=== PATIENT | male | born 1955 | race Caucasian/White ===

== ENCOUNTER 2023-05-31 08:56 | Outpatient (OUT) | payer MEDICARE, SELFPAY ==
--- NOTE | 2023-05-31 | US_ITS ---
The [address] [address] Patient Name: ADELA AGUILAR MRN: [id number] date: 1955 Sex: M Assigned Patient Location: [place] Current Patient Location: [place] Accession/Order Number: [id number] Exam Date: 05/31/2023 09:13 Report Date: 05/31/2023 10:47 At the request of: VLAD BLACK Procedure: US abdominal aortic aneurysm EXAM: US abdominal aortic aneurysm HISTORY: . 71.4 AAA without rupture . COMPARISON: 05/25/2022 TECHNIQUE: Grayscale and color imaging was performed FINDINGS: Scanning of the proximal aorta demonstrates the proximal aorta to measure 2.4 x 3 cm, mid aorta 2.6 x 2.9 cm, and the distal aorta 3.3 x 4.4 cm. Color-flow is noted throughout the aorta. Left iliac measured 1.8 cm in right iliac 1.9 cm. Atherosclerotic changes of the abdominal aorta are noted. US/US abdominal aortic aneurysm IMPRESSION: 1. Atherosclerotic changes of the abdominal aorta. 2. Aneurysmal dilatation of the distal abdominal aorta measuring 3.3 x 4.4 cm. This compares with a previous measurement of 3.8 x 3.9 cm on the exam of 05/25/2022. Electronically authenticated by: JOSE GRAHAM Date: 05/31/2023 10:47
== END 2023-05-31 08:57 | disposition home or self-care (01) ==
LOC: US 08:56
PROVIDERS: Family Provider Internal Medicine; PCP Internal Medicine; Visit Provider Internal Medicine
DX: I71.40 Abdominal aortic aneurysm, without rupture, unspecified (principal)
CPT/HCPCS: 76775

== ENCOUNTER 2024-01-14 13:34 | Outpatient (OUT) | payer MEDICARE, SELFPAY ==
--- OUTSIDE RECORDS SUMMARY | 2024-01-14 13:57 | XMS_ITS | CCD ---
Author Organization [facility] Care Team Providers Care Client Support Coordinator Name Role Phone SHASHA CARPIO Referring Unavailable PROVIDER, UNKNOWN Attending Unavailable PROVIDER, UNKNOWN Admitting Unavailable CYNTHIA LUNA Consulting Unavailable SOFIA, DR CHU Primary Care Unavailable IRAIS, DR ROMA Small Attending Unavailable IRAIS, DR ROMA Small Admitting Unavailable CYNTHIA LUNA Consulting Unavailable SOFIA, DR CHU Primary Care Unavailable IRAIS, DR ROMA Small Attending Unavailable IRAIS, DR ROMA Small Admitting Unavailable SOFIA, DR CHU Consulting Unavailable SOFIA, DR CHU Primary Care Unavailable IRAIS, DR ROMA Small Attending Unavailable IRAIS, DR ROMA Small Admitting Unavailable IRAIS, DR ROMA Small Consulting Unavailable BRIAN ROSE Consulting Unavailable SOFIA, DR CHU Consulting Unavailable SOFIA, DR CHU Primary Care Unavailable IRAIS, DR ROMA Small Attending Unavailable IRAIS, DR ROMA Small Admitting Unavailable CYNTHIA LUNA Consulting Unavailable SOFIA, DR CHU Consulting Unavailable SOFIA, DR CHU Primary Care Unavailable IRAIS, DR ROMA Small Attending Unavailable IRAIS, DR ROMA Small Admitting Unavailable IRAIS, DR ROMA Small Consulting Unavailable SOFIA, DR CHU Primary Care Unavailable IRAIS, DR ROMA Small Attending Unavailable IRAIS, DR ROMA Small Admitting Unavailable IRAIS, DR ROMA Small Consulting Unavailable SOFIA, DR CHU Primary Care Unavailable IRAIS, DR ROMA Small Attending Unavailable IRAIS, DR ROMA Small Admitting Unavailable IRAIS, DR ROMA Small Consulting Unavailable SOFIA, DR CHU Primary Care Unavailable IRAIS, DR ROMA Small Attending Unavailable IRAIS, DR ROMA Small Admitting Unavailable IRAIS, DR ROMA Small Consulting Unavailable SOFIA, DR CHU Primary Care Unavailable IRAIS, DR ROMA Small Attending Unavailable IRAIS, DR ROMA Small Admitting Unavailable BERTO MACIAS Consulting Unavailable SOFIA, DR CHU Consulting Unavailable SOFIA, DR CHU Primary Care Unavailable SOFIA, DR CHU Attending Unavailable SOFIA, DR CHU Admitting Unavailable ZIDR ALE RANGEL Consulting Unavailable SOFIA, DR CHU Consulting Unavailable SOFIA, DR CHU Primary Care Unavailable SOFIA, DR CHU Attending Unavailable SOFIA, DR CHU Admitting Unavailable HENRY, DR JOSE Loja Consulting Unavailable IRAIS, DR ROMA Small Consulting Unavailable SOFIA, DR CHU Primary Care Unavailable IRAIS, DR ROMA Small Attending Unavailable IRAIS, DR ROMA Small Admitting Unavailable IRAIS, DR ROMA Small Consulting Unavailable SOFIA, DR CHU Primary Care Unavailable IRAIS, DR ROMA Small Attending Unavailable IRAIS, DR ROMA Small Admitting Unavailable Davion Patino MD Primary Care Provider DAVION PATINO Referring Unavailable DAVION PATINO Primary Care Unavailable LISTE AVILA Referring Unavailab DAVION Mccloud Primary Care Unavailable LISET AVILA Attending Unavailab DAVION Mccloud Referring Unavailable DAVION PATINO Primary Care Unavailable DAVION PATINO Referring Unavailable DAVION PATINO Primary Care Unavailable DAVION PATINO Attending Unavailable DAVION PATINO Attending Unavailable DAVION PATINO Attending Unavailable MELINDA CAMPBELL Attending Unavailable MELINDA CAMPBELL Referring Unavailable MELINDA CAMPBELL Attending Unavailable Allergies Allergy Classification Reported Allergen(s) Allergy Type Date of Onset Reaction(s) Facility (3 sources) Penicillins; Translations: [PENICILLINS] Drug allergy (disorder) 3 [facility] Repository (4 sources) hydrALAZINE; Translations: [HYDRALAZINE] Drug Allergy 9 [facility] (3 sources) Penicillins Propensity to adverse reactions to drug 9 [facility] Medications Current Medications Medication Drug Class(es) Dates Sig (Normalized) Sig (Original) amLODIPine 5 mg oral tablet (3 sources) Dihydropyridine Calcium Channel Sheri Start: 10-13-2018 take 1 tablet by mouth in the morning, then take 1 tablet by mouth at bedtime amLODIPine (NORVASC) 5 mg tablet Take 1 tablet (5 mg total) by mouth in the morning and 1 tablet (5 mg total) before bedtime. 2 10/13/2018 Active aspirin 81 mg delayed release oral tablet (3 sources) Platelet Aggregation Inhibitor, Nonsteroidal Anti-inflammatory Drug take 1 tablet by mouth in the morning aspirin 81 mg Take 1 tablet (81 mg total) by mouth in the morning. 30 tablet 11 Active atorvastatin 80 mg oral tablet (3 sources) HMG-CoA Reductase Inhibitor Start: 07-01-2018 take 1 tablet by mouth once daily atorvastatin (LIPITOR) 80 mg tablet Take 1 tablet (80 mg total) by mouth daily. 30 tablet 0 07/01/2018 Active carvedilol 25 mg oral tablet (3 sources) alpha-Adrenergic Sheri, beta-Adrenergic Sheri Start: 08-20-2018 take 1 tablet by mouth in the morning, then take 1 tablet by mouth at bedtime carvedilol (COREG) 25 mg tablet Take 1 tablet (25 mg total) by mouth in the morning and 1 tablet (25 mg total) before bedtime. 3 08/20/2018 Active cholecalciferol 0.01 mg oral capsule (3 sources) Vitamin D Start: 09-11-2021 take 1 tablet by mouth once daily cholecalciferol, vitamin D3, 10 mcg (400 unit) capsule Take 1 tablet by mouth daily. 0 09/11/2021 Active furosemide 40 mg oral tablet (3 sources) Loop Diuretic Start: 08-24-2018 take 1 tablet by mouth twice daily furosemide (LASIX) 40 mg tablet Take 1 tablet (40 mg total) by mouth 2 (two) times a day. 2 08/24/2018 Active 24 hr isosorbide mononitrate 60 mg extended release oral tablet (3 sources) Nitrate Vasodilator Start: 10-16-2018 take 1 tablet by mouth once daily isosorbide mononitrate (IMDUR) 60 mg 24 hr tablet Take 1 tablet (60 mg total) by mouth daily. 3 10/16/2018 Active lisinopril 20 mg oral tablet (3 sources) Angiotensin Converting Enzyme Inhibitor take 1 tablet by mouth in the morning lisinopril (PRINIVIL,ZESTRIL ) 20 mg tablet Take 1 tablet (20 mg total) by mouth in the morning. 0 Active metFORMIN hydrochloride 500 mg oral tablet (3 sources) Biguanide take 2 tablets by mouth in the morning, then take 2 tablets by mouth at mealtime metFORMIN (GLUCOPHAGE) 500 mg tablet Take 2 tablets (1,000 mg total) by mouth in the morning and 2 tablets (1,000 mg total) in the evening. Take with meals. 0 Active pantoprazole 40 mg delayed release oral tablet (3 sources) Proton Pump Inhibitor Start: 10-06-2018 take 1 tablet by mouth in the morning pantoprazole (PROTONIX) 40 mg EC tablet Take 1 tablet (40 mg total) by mouth in the morning. 1 10/06/2018 Active rivaroxaban 20 mg oral tablet (5 sources) Factor Xa Inhibitor Start: 08-21-2023 End: 08-29-2023 take 1 tablet by mouth once daily at dinner rivaroxaban (XARELTO) 20 mg tablet tablet Take 1 tablet (20 mg total) by mouth daily with dinner. 90 tablet 3 08/29/2023 Active Start: 08-21-2023 take 1 tablet by lorie th in the morning rivaroxaban (XARELTO) 15 mg tablet TAKE 1 TABLET BY MOUTH IN THE MORNING 30 tablet 11 08/21/2023 Active Start: 06-12-2022 End: 08-17-2023 take 1 tablet by mouth in the morning XARELTO 15 mg tablet TAKE 1 TABLET BY MOUTH IN THE MORNING 30 tablet 6 06/12/2022 08/17/2023 Discontinued (Reorder) simvastatin 80 mg oral tablet (3 sources) HMG-CoA Reductase Inhibitor take 1 tablet by mouth in the evening simvastatin (ZOCOR) 80 mg tablet Take 1 tablet (80 mg total) by mouth in the evening. 0 Active tamsulosin hydrochloride 0.4 mg oral capsule (3 sources) alpha-Adrenergic Sheri Start: 08-06-19 19 tamsulosin (FLOMAX) 0.4 mg capsule daily. 3 08/06/2018 Active tiZANidine 4 mg oral tablet (3 sources) Central alpha-2 Adrenergic Agonist Start: 09-22-19 take 1 tablet by mouth every twelve hours as needed for pain tiZANidine (ZANAFLEX) 4 mg tablet TAKE 1 TABLET BY MOUTH EVERY 12 HOURS NEEDED FOR NECK PAIN 0 09/21/2021 Active vitamin b12 0.5 mg oral tablet (3 sources) Vitamin B12 Start: 07-24-19 22 take 1 tablet by mouth in the morning cyanocobalamin 500 MCG tablet Take 1 tablet (500 mcg total) by mouth in the morning. 0 07/24/2021 Active zolpidem tartrate 10 mg oral tablet (3 sources) gamma-Aminobutyric Acid-ergic Agonist Start: 10-15-19 19 take 1 tablet by mouth once daily as needed zolpidem (AMBIEN) 10 mg tablet Take 1 tablet (10 mg total) by mouth nightly as needed. 2 10/14/2018 Active Problems Active Problems Problem Classification Problem Date Documented Da te Episodic/Chronic Cardiac dysrhythmias (4 sources) Paroxysmal atrial fibrillation; Translations: [Paroxysmal atrial fibrillation] Onset: 10-26-2021 10-26-2021 Chronic Conduction disorders (8 sources) Automatic implantable cardiac defibrillator in situ; Translations: [Presence of automatic (implantable) cardiac defibrillator] Onset: 10-30-2018 08-01-2023 Chronic Congestive heart failure; nonhypertensive (4 sources) Heart failure; Translations: [Heart failure, unspecified] Onset: 10-29-2018 10-29-2018 Chronic Coronary atherosclerosis and other heart disease (8 sources) Ischemic myocardial dysfunction; Translations: [Ischemic cardiomyopathy] Onset: 10-29-2018 10-29-2018 Chronic Diabetes mellitus without complication (1 source) Type 2 diabetes mellitus without complications; Translations: [TYPE 2 DM WITHOUT COMPLICATIONS] Onset: 04-27-2022 Chronic Disorders of lipid metabolism (3 sources) Hyperlipidemia; Translations: [Hyperlipidemia, unspecified] 10-29-2018 Chronic Essential hypertension (4 sources) Hypertensive disorder; Translations: [Essential (primary) hypertension] Onset: 10-29-2018 10-29-2018 Chronic Other nervous system disorders (1 source) Other chronic pain; Translations: [OTHER CHRONIC PAIN] Onset: 04-27-2022 Chronic Spondylosis; intervertebral disc disorders; other back problems (10 sources) Spondylosis without myelopathy or radiculopathy, lumbar region; Translations: [Other intervertebral disc degeneration, lumbar region] Onset: 02-16-2022 Chronic Unclassified (1 source) LOW BACK PAIN, UNSPECIFIED; Translations: [LOW BACK PAIN, UNSPECIFIED] Onset: 06-05-2022 Unclassified (3 sources) ABDOMINAL AA W/O RUPTURE UNSPCIFIED; Translations: [ABDOMINAL AA W/O RUPTURE UNSPCIFIED] Onset: 05-29-2022 Unclassified (1 source) CONTACT W/AND (SUSP) EXPOS COVID-19; Translations: [CONTACT W/AND (SUSP) EXPOS COVID-19] Onset: 04-24-2022 Unclassified (1 source) Nurse Visit Onset: 12-05-2023 Unclassified (1 source) Device Check Onset: 08-01-2023 Past or Other Problems Problem Classification Problem Date Documented Da te Episodic/Chronic Spondylosis; intervertebral disc disorders; other back problems (4 sources) Lumbago with sciatica, left side; Translations: [LUMBAGO WITH SCIATICA LEFT SIDE] Onset: 07-14-2021 Episodic Unclassified (1 source) ABDOMINAL AA W/O RUPTURE UNSPCIFIED; Translations: [ABDOMINAL AA W/O RUPTURE UNSPCIFIED] Onset: 05-25-2022 Results Test Name Value Interpretation Reference Range Facility US ABD AORTA DIAGNOSTICon US ABD AORTA DIAGNOSTIC EXAMINATION: US ABD AORTA DIAGNOSTIC HISTORY: Abdominal aortic aneurysm without rupture COMPARISON: 05/18/2021 TECHNIQUE: Ultrasound examination of the retroperitoneal area was performed, with a focused evaluation of the abdominal aorta. FINDINGS: Proximal aorta: 3.2 x 3.0 cm Mid aorta: 2.5 x 2.0 cm Distal aorta: 3.8 x 3.9 cm Right common iliac artery: 2.1 x 1.3 cm Left common iliac artery: 2.0 x 1.8 cm Normal color and Doppler flow. Moderate atherosclerosis IMPRESSION: Slight interval increase in distal abdominal aortic aneurysm now measuring 3.8 x 3.9 cm Electronically authenticated by: JOSE FIGUEROA Date: 2022-05-25 18:13 Normal [facility] POINT OF CARE GLUCOSEon 10-0 Glucose [Mass/Vol] 121 mg/dL Critically high 74-106 [facility] Comment on above: Performed By: #### P OCGLUC #### [facility] [address] [address] [address] Colin Good [facility]25 SARS-CoV-2 (COVID-19) RNA CELSO+probe Ql (Unsp spec) Not detected Normal NOT DETECTED [facility] Comment on above: Result Comment: This test is not yet approved or cleared by the [place] FDA. When there are no FDA-approved or cleared tests available, and other criteria are met, FDA can make tests available under an emergency access mechanism called an Emergency Use Authorization (EUA). The EUA for this test is supported by the [place] of Health and Human Service's (HHS's) declaration that circumstances exist to justify the emergency use of in vitro diagnostics for the detection and/or diagnosis of the virus that causes COVID-19. This EUA will remain in effect (meaning this test can be used) for the duration of the COVID-19 declaration justifying emergency of IVDs, unless it is terminated or revoked by FDA (after which the test may no longer be used). When diagnostic testing is negative, the possibility of a false negative should be considered in the context of a patient's recent exposures and the presence of clinical signs and symptoms consistent with SARS-CoV-2. Performed By: #### C VDTBH #### [facility] [address] [place] [address] Dr. Colin Good POINT OF CARE GLUCOSEon 03-24 Glucose [Mass/Vol] 112 mg/dL Critically high 74-106 [facility] Comment on above: Performed By: #### P OCGLUC #### [facility] [address] [place] [address] Dr. Colin Good Covid-19 PCR ([facility])on 03-23 SARS-CoV-2 (COVID-19) RNA CELSO+probe Ql (Unsp spec) Not detected Normal NOT DETECTED [facility] Comment on above: Result Comment: This test is not yet approved or cleared by the [place] FDA. When there are no FDA-approved or cleared tests available, and other criteria are met, FDA can make tests available under an emergency access mechanism called an Emergency Use Authorization (EUA). The EUA for this test is supported by the [place] of Health and Human Service's (HHS's) declaration that circumstances exist to justify the emergency use of in vitro diagnostics for the detection and/or diagnosis of the virus that causes COVID-19. This EUA will remain in effect (meaning this test can be used) for the duration of the COVID-19 declaration justifying emergency of IVDs, unless it is terminated or revoked by FDA (after which the test may no longer be used). When diagnostic testing is negative, the possibility of a false negative should be considered in the context of a patient's recent exposures and the presence of clinical signs and symptoms consistent with SARS-CoV-2. Performed By: #### C VDTBH #### [facility] [address] [place] [address] [address] Colin Good POINT OF CARE GLUCOSEon 01-20 Glucose [Mass/Vol] 122 mg/dL Critically high 74-106 [facility] Comment on above: Performed By: #### P OCGLUC #### [facility] [address] [place] [address] Dr. Colin Good POINT OF CARE GLUCOSEon 04- Glucose [Mass/Vol] 142 mg/dL Critically high 74-106 [facility] Comment on above: Performed By: #### P OCGLUC #### [facility] [address] [address] [address] Colin Good Q - CBC W/DIFF AND PLTon BASOABS 61 cells/uL Normal 0-200 [facility] Comment on above: Order Comment: [facility] performed at: [place], [facility], [address] [place] [address], [address] [place] [address], [address] [place] [address], Time Study Clerk: Jorje Velázquez MD [facility] Date/Time: [facility] Results Received Date/Time: [facility] Reported Date/Time: Performed By: #### 1 0231A, 42A #### [facility] Default [address] [place] [address] Basophils/100 WBC (Bld) 0.6 % Normal [facility] Comment on above: Order Comment: [facility] performed at: [place], [facility], [address] [facility], [address] [place] [address], [address] [place] [address], Time Study Clerk: Jorje Velázquez MD [facility] Date/Time: [facility] Results Received Date/Time: [facility] Reported Date/Time: Performed By: #### 1 0231A, 42A #### [facility] Default [address] [place] [address] EOSABS 286 cells/uL Normal 15-500 [facility] Comment on above: Order Comment: [facility] performed at: [place], [facility], [address] [facility], [address] [place] [address], [address] [place] [address], Time Study Clerk: oJrje Velázquez MD [facility] Date/Time: [facility] Results Received Date/Time: [facility] Reported Date/Time: Performed By: #### 1 0231A, 42A #### [facility] [address] [place] [address] Eosinophils/100 WBC (Bld) 2.8 % Normal [facility] Comment on above: Order Comment: [facility] performed at: [place], [facility], [address] [facility], [address] [place] [address], [phone], Time Study Clerk: Jorje Velázquez MD [facility] Date/Time: [facility] Results Received Date/Time: [facility] Reported Date/Time: Performed By: #### 1 0231A, 42A #### [facility] [address] [place] [address] Erythrocyte distribution width (RBC) [Ratio] 12.4 % Normal 11.0-15.0 [facility] Comment on above: Order Comment: [facility] performed at: [facility], [address] [place] [address], [address] [place] [address], [phone], Time Study Clerk: Jorje Velázquez MD [facility] Date/Time: [facility] Results Received Date/Time: [facility] Reported Date/Time: Performed By: #### 1 0231A, 42A #### [facility] [address] [place] [address] Hematocrit (Bld) [Volume fraction] 38.7 % Normal 38.5-50.0 [facility] Comment on above: Order Comment: [facility] performed at: [facility], [address] [facility], [address] [place] [address], [phone], Time Study Clerk: Jorje Velázquez MD [facility] Date/Time: [facility] Received Date/Time: [facility] Reported Date/Time: Performed By: #### 1 1A, 42A #### [facility] [address] [place] [address] Hemoglobin (Bld) [Mass/Vol] 12.9 g/dL Low 13.2-17.1 [facility] Comment on above: Order Comment: [facility] performed at: [place], [facility], [address] [facility], [address] [place] [address], [address] [place] [address], Time Study Clerk: Jorje Velázquez MD [facility] Date/Time: [facility] Results Received Date/Time: [facility] Reported Date/Time: Performed By: #### 1 0231A, 42A #### [facility] [address] [place] [address] Lymphocytes (Bld) [#/Vol] 1.785 10*3/uL Normal 850-3900 [facility] Comment on above: Order Comment: [facility] performed at: [place], [facility], [address] [facility], [address] [place] [address], [address] [place] [address], Time Study Clerk: Jorje Velázquez MD [facility] Date/Time: [facility] Results Received Date/Time: [facility] Reported Date/Time: Performed By: #### 1 1A, 42A #### [facility] [address] [place] [address] Lymphocytes/100 WBC (Bld) 17.5 % Normal [place] [facility] Comment on above: Order Comment: [facility] performed at: [place], [facility], [address] [facility], [address] [place] [address], [address] [place] [address], Time Study Clerk: Jorje Velázquez MD [facility] Date/Time: [facility] Results Received Date/Time: [facility] Reported Date/Time: Performed By: #### 1 1A, 42A #### [facility] [address] [place] [address] MCH (RBC) [Entitic mass] 29.3 pg Normal 27.0-33.0 [facility] Comment on above: Order Comment: [facility] performed at: [place], [facility], [address] [place] [address], [address] [place] [address], [address] [place] [address], Time Study Clerk: Jorje Velázquez MD [facility] Date/Time: [facility] Received Date/Time: [facility] Reported Date/Time: Performed By: #### 1 0231A, 42A #### [facility] [address] [place] [address] MCHC (RBC) [Mass/Vol] 33.3 g/dL Normal 32.0-36.0 [facility] Comment on above: Order Comment: [facility] performed at: [place], [facility], [address] [place] [address], [address] [place] [address], [address] [place] [address], Time Study Clerk: Jorje Velázquez MD [facility] Date/Time: [facility] Received Date/Time: [facility] Reported Date/Time: Performed By: #### 1 0231A, 42A #### [facility] [address] [place] [address] MCV (RBC) [Entitic vol] 88.0 fL Normal 80.0-100.0 [facility] Cooperative Manager Comment on above: Order Comment: [facility] performed at: [place], [facility], [address] [place] [address], [address] [place] [address], [address] [place] [address], Time Study Clerk: Jorje Velázquez MD [facility] Date/Time: [facility] Received Date/Time: [facility] Reported Date/Time: Performed By: #### 1 0231A, 42A #### [facility] [address] [place] [address] MONOABS 612 cells/uL Normal 200-950 [facility] Manager Comment on above: Order Comment: [facility] performed at: [place], [facility], [address] [place] [address], [address] [place] [address], [address] [place] [address], Time Study Clerk: Jorje Velázquez MD [facility] Date/Time: [facility] Received Date/Time: [facility] Reported Date/Time: Performed By: #### 1 0231A, 42A #### [facility] [address] [place] [address] Monocytes/100 WBC (Bld) 6.0 % Normal [facility] Comment on above: Order Comment: [facility] performed at: [place], [facility], [address] [place] [address], [address] [place] [address], [address] [place] [address], Time Study Clerk: Jorje Velázquez MD [facility] Date/Time: [facility] Results Received Date/Time: [facility] Reported Date/Time: Performed By: #### 1 0231A, 42A #### [facility] [address] [place] [address] Neutrophils (Bld) [#/Vol] 7.456 10*3/uL Normal 3744-0384 [facility] Comment on above: Order Comment: [facility] performed at: [place], [facility], [address] [place] [address], [address] [place] [address], [address] [place] [address], Time Study Clerk: Jorje Velázquez MD [facility] Date/Time: [facility] Received Date/Time: [facility] Reported Date/Time: Performed By: #### 1 0231A, 42A #### [facility] [address] [place] [address] Neutrophils/100 WBC (Bld) 73.1 % Normal [facility] Comment on above: Order Comment: [facility] performed at: [place], [facility], [address] [place] [address], [address] [place] [address], [address] [place] [address], Time Study Clerk: Jorje Velázquez MD [facility] Date/Time: [facility] Results Received Date/Time: [facility] Reported Date/Time: Performed By: #### 1 0231A, 42A #### [facility] [address] [place] [address] Platelet mean volume (Bld) [Entitic vol] 12.3 fL Normal 7.5-12.5 [facility] Comment on above: Order Comment: [facility] performed at: [place], [facility], [address] [place] [address], [address] [place] [address], [address] [place] [address], Time Study Clerk: Jorje Velázquez MD [facility] Date/Time: [facility] Received Date/Time: [facility] Reported Date/Time: Performed By: #### 1 0231A, 42A #### [facility] [address] [place] [address] Platelets (Bld) [#/Vol] 235 10*3/uL Normal 140-400 [facility] Comment on above: Order Comment: [facility] performed at: [place], [facility], [address] [place] [address], [address] [place] [address], [address] [place] [address], Time Study Clerk: Jorje Velázquez MD [facility] Date/Time: [facility] Received Date/Time: [facility] Reported Date/Time: Performed By: #### 1 0231A, 42A #### [facility] [address] [place] [address] RBC (Bld) [#/Vol] 4.40 10*6/uL Normal 4.20-5.[address] [facility] Comment on above: Order Comment: [facility] Testing performed at: [place], [address] [place] [address], [address] [place] [address], [address] [place] [address], Time Study Clerk: Jorje Velázquez MD [facility] Collection Date/Time: [facility] Results Received Date/Time: [facility] Reported Date/Time: Performed By: #### 1 0231A, 42A #### [facility] Default [address] [place] [address] WBC (Bld) [#/Vol] 10.2 10*3/uL Normal 3.8-10.[address] [facility] Comment on above: Order Comment: [facility] performed at: [facility], [address] [place] [address], [address] [place] [address], [address] [place] [address], Time Study Clerk: Jorje Velázquez MD [facility] Collection Date/Time: [facility] Results Received Date/Time: [facility] Reported Date/Time: Performed By: #### 1 0231A, 42A #### [facility] Default [address] [place] [address] Q - COMPREHENSIVE METABOLIC PANEL W/EGFRon 08-01-2021 Albumin [Mass/Vol] 4.7 g/dL Normal 3.6-5.1 [facility] Comment on above: Order Comment: [facility] performed at: [facility], [address] [place] [address], [address] [place] [address], [address] [place] [address], Time Study Clerk: Jorje Velázquez MD [facility] Collection Date/Time: [facility] Results Received Date/Time: [facility] Reported Date/Time: Performed By: #### 1 0231A, 42A #### [facility] Default [address] [place] [address] Albumin/Globulin [Mass ratio] 2.6 {ratio} High 1.0-2.5 [facility] Comment on above: Order Comment: [facility] performed at: [facility], [facility], [address] [place] [address], [address] [place] [address], Time Study Clerk: Jorje Velázquez MD [facility] Collection Date/Time: [facility] Results Received Date/Time: [facility] Reported Date/Time: Performed By: #### 1 0231A, 42A #### [facility] [address] [place] [address] ALP [Catalytic activity/Vol] 38 U/L Normal 35-144 [facility] Comment on above: Order Comment: [facility] Testing performed at: [place], [address] [facility], [address] [place] [address], [address] [place] [address], Time Study Clerk: Jorje Velázquez MD [facility] Collection Date/Time: [facility] Results Received Date/Time: [facility] Reported Date/Time: Performed By: #### 1 0231A, 42A #### [facility] [address] [place] [address] ALT [Catalytic activity/Vol] 15 U/L Normal 9-46 [facility] Comment on above: Order Comment: [facility] performed at: [place], [address] [place] [address], [address] [place] [address], [address] [place] [address], Time Study Clerk: Jorje Velázquez MD [facility] Collection Date/Time: [facility] Results Received Date/Time: [facility] Reported Date/Time: Performed By: #### 1 0231A, 42A #### [facility] [address] [place] [address] AST [Catalytic activity/Vol] 15 U/L Normal 10-35 [facility] Comment on above: Order Comment: [facility] performed at: [place], [address] [place] [address], [address] [place] [address], [address] [place] [address], Time Study Clerk: Jorje Velázquez MD [facility] Collection Date/Time: [facility] Results Received Date/Time: [facility] Reported Date/Time: Performed By: #### 1 0231A, 42A #### [facility] [address] [place] [address] Bilirubin [Mass/Vol] 0.6 mg/dL Normal 0.2-1.2 [facility] Comment on above: Order Comment: [facility] performed at: [place], [address] [facility], [address] [place] [address], [address] [place] [address], Time Study Clerk: Jorje Velázquez MD [facility] Collection Date/Time: [facility] Results Received Date/Time: [facility] Reported Date/Time: Performed By: #### 1 0231A, 42A #### [facility] [address] [place] [address] BUN/CREA 18 NOT APPLICABLE Normal 6-22 [facility] Comment on above: Order Comment: [facility] Testing performed at: [place], [address] [facility], [address] [place] [address], [address] [place] [address], Time Study Clerk: Jorje Velázquez MD [facility] Collection Date/Time: [facility] Results Received Date/Time: [facility] Reported Date/Time: Performed By: #### 1 0231A, 42A #### [facility] [address] [place] [address] Calcium [Mass/Vol] 9.6 mg/dL Normal 8.6-10.3 [facility] Comment on above: Order Comment: [facility] performed at: [place], [address] [facility], [address] [place] [address], [address] [place] [address], Time Study Clerk: Jorje Velázquez MD [facility] Collection Date/Time: [facility] Results Received Date/Time: [facility] Reported Date/Time: Performed By: #### 1 0231A, 42A #### [facility] [address] [place] [address] Chloride [Moles/Vol] 104 mmol/L Normal 98-110 [facility] Comment on above: Order Comment: [facility] Testing performed at: [place], [address] [facility], [address] [place] [address], [address] [place] [address], Time Study Clerk: Jorje Velázquez MD [facility] Collection Date/Time: [facility] Results Received Date/Time: [facility] Reported Date/Time: Performed By: #### 1 0231A, 42A #### [facility] [address] [place] [address] CO2 [Moles/Vol] 33 mmol/L High 20-32 [facility] Comment on above: Order Comment: [facility] performed at: [place], [address] [place] [address], [address] [place] [address], [address] [place] [address], Time Study Clerk: Jorje Velázquez MD [facility] Collection Date/Time: [facility] Results Received Date/Time: [facility] Reported Date/Time: Performed By: #### 1 0231A, 42A #### [facility] [address] [place] [address] Creatinine [Mass/Vol] 1.20 mg/dL Normal 0.70-1.25 [facility] Comment on above: Order Comment: [facility] Testing performed at: [place], [address] [place] [address], [address] [place] [address], [address] [place] [address], Time Study Clerk: Jorje Velázquez MD [facility] Collection Date/Time: [facility] Results Received Date/Time: [facility] Reported Date/Time: Result Comment: For patients >49 years of age, the reference limit for Creatinine is approximately 13% higher for people identified as -German. Performed By: #### 1 0231A, 42A #### [facility] [address] [place] [address] eGFRAA 73 mL/min/1.73m2 Normal > OR = 60 [facility] Comment on above: Order Comment: [facility] performed at: [place], [address] [place] [address], [address] [place] [address], [address] [place] [address], Time Study Clerk: Jorje Velázquez MD [facility] Collection Date/Time: [facility] Results Received Date/Time: [facility] Reported Date/Time: Performed By: #### 1 0231A, 42A #### [facility] [address] [place] [address] eGFRNAA 61 mL/min/1.73m2 Normal > OR = 60 [facility] Comment on above: Order Comment: [facility] performed at: [facility], [address] [place] [address], [address] [place] [address], [address] [place] [address], Time Study Clerk: Jorje Velázquez MD [facility] Collection Date/Time: [facility] Results Received Date/Time: [facility] Reported Date/Time: Performed By: #### 1 0231A, 42A #### [facility] Default [address] [place] [address] Globulin (S) [Mass/Vol] 1.8 g/dL Low 1.9-3.7 [facility] Comment on above: Order Comment: [facility] performed at: [facility], [address] [place] [address], [address] [place] [address], [address] [place] [address], Time Study Clerk: Jorje Velázquez MD [facility] Collection Date/Time: [facility] Results Received Date/Time: [facility] Reported Date/Time: Performed By: #### 1 0231A, 42A #### [facility] Default [address] [place] [address] Glucose [Mass/Vol] 126 mg/dL High 65-99 [facility] Comment on above: Order Comment: [facility] performed at: [facility], [address] [facility], [address] [place] [address], [address] [place] [address], Time Study Clerk: Jorje Velázquez MD [facility] Collection Date/Time: [facility] Results Received Date/Time: [facility] Reported Date/Time: Result Comment: Fasting reference interval For someone without known diabetes, a glucose value >125 mg/dL indicates that they may have diabetes and this should be confirmed with a follow-up test. Performed By: #### 1 0231A, 42A #### [facility] [address] [place] [address] Potassium [Moles/Vol] 4.2 mmol/L Normal 3.5-5.3 [facility] Comment on above: Order Comment: [facility] performed at: [facility], [address] [facility], [address] [place] [address], [address] [place] [address], Time Study Clerk: Jorje Velázquez MD [facility] Collection Date/Time: [facility] Results Received Date/Time: [facility] Reported Date/Time: Performed By: #### 1 0231A, 42A #### [facility] Default [address] [place] [address] Protein [Mass/Vol] 6.5 g/dL Normal 6.1-8.1 [facility] [place] [facility] Comment on above: Order Comment: [facility] performed at: [place], [address] [place] [address], [address] [place] [address], [address] [place] [address], Time Study Clerk: Jorje Velázquez MD [facility] Collection Date/Time: [facility] Results Received Date/Time: [facility] Reported Date/Time: Performed By: #### 1 0231A, 42A #### [facility] Default [address] [place] [address] Sodium [Moles/Vol] 142 mmol/L Normal 135-146 [facility] [place] [facility] Comment on above: Order Comment: [facility] performed at: [place], [address] [place] [address], [address] [place] [address], [address] [place] [address], Time Study Clerk: Jorje Velázquez MD [facility] Collection Date/Time: [facility] Results Received Date/Time: [facility] Reported Date/Time: Performed By: #### 1 0231A, 42A #### [facility] Default [address] [place] [address] Urea nitrogen [Mass/Vol] 22 mg/dL Normal 7-25 [facility] Comment on above: Order Comment: [facility] Testing performed at: [place], [address] [place] [address], [address] [place] [address], [address] [place] [address], Time Study Clerk: Jorje Velázqeuz MD [facility] Collection Date/Time: [facility] Results Received Date/Time: [id number] [facility] Reported Date/Time: [id number] Performed By: #### 1 0231A, 42A #### [facility] Default [address] [place] [address] XR LSPINE W_OBLS AND FLEX_EX Ton 07-14-2021 XR LSPINE W_OBLS AND FLEX_EXT EXAMINATION: XR LSPINE W_OBLS AND FLEX_EXT HISTORY: Lumbago with sciatica ; lumbar and left leg pain COMPARISON: CT abdomen pelvis 02/25/2016 FINDINGS: BONES: Moderate marked degenerative facet arthropathy L4-5, L5-S1. Height and alignment of the vertebral bodies; no fracture. Multilevel prominent anterior endplate degenerative osteophytes. DISC SPACES: L1-2, L2-3 mild narrowing. L4-5 marked narrowing. L5-S1 moderate narrowing. PARASPINOUS: Atherosclerotic disease of aorta with fusiform aneurysm approximately 4.2 cm in diameter. OTHER: Negative. IMPRESSION: 1. L4-5 marked degenerative disc disease and degenerative facet arthropathy. Moderate-marked changes at L5-S1. Findings have progressed since 2016. 2. Fusiform aneurysm of distal aorta 4.2 cm. Electronically authenticated by: ALE WILLARD Date: 2021-07-14 16:22 Normal [facility] XR CHEST PA+LATon 08-27-2020 XR CHEST PA+LAT EXAMINATION: XR CHEST 2 VIEW PA+LAT CLINICAL HISTORY: Heart failure with reduced ejection fraction TECHNOLOGISTS NOTE: COMPARISON: No prior studies available FINDINGS: Cardiomediastinal silhouette: Cardiac silhouette is prominent. There are sternotomy sutures.. There is a pacer defibrillator 2 leads superimposing over the right ventricle 1 more caudally and one more superiorly. Trachea: No deviation. Lungs/Pleura: Grossly clear Musculoskeletal: Limited visualization. Marginal spurring as well as anterior longitudinal calcification. Osteopenia.. IMPRESSION: There is a pacer defibrillator 2 leads superimposing over the right ventricle 1 more caudally and one more superiorly. MACRO: None Normal [facility] Encounters Encounter Date Encounter Type Care Provider Facility Start: 01-08-2024 End: 01-08-2024 ambulatory MELINDA CAMPBELL Not Available Start: 12-11-2023 End: 12-11-2023 ambulatory MELINDA CAMPBELL Not Available Start: 12-07-2023 ambulatory LISET Rojo [facility] Start: 12-05-2023 End: 12-05-2023 ambulatory DAVION PATINO [facility] Start: 10-15-2023 End: 10-15-2023 ambulatory DAVION PATINO Not Available Start: 08-29-2023 Refill Danika Hopkins RN [facility] Comment on above: Med Refill Start: 08-17-2023 Telephone [facility] Comment on above: xarelto Start: 08-01-2023 End: 08-01-2023 Clinical Support [facility] Comment on above: Automatic implantabl e cardioverter-defibrillator in situ - [place] (Primary Dx) Start: 07-26-2023 End: 07-26-2023 ambulatory DAVION PATINO Not Available Start: 06-06-2023 End: 06-06-2023 ambulatory DAVION PATINO Not Available Start: 08-31-[address] DAVION PATINO Facilit y:[facility]1 Start: 06-01-2022 End: 06-02-2022 ambulatory CYNTHIA LUNA Facility:[facility] Start: 05-25-2022 End: 05-26-[address] DAVION PATINO Facility:[facility] Start: 04-25-2022 End: 04-25-[address] ROMA BRAXTON Facility:[facility] Start: 04-24-2022 Encounter for preprocedural laboratory examination DR ROMA BRAXTON [facility] Start: 04-21-2022 End: 04-22-[address] ROMA BRAXTON Facility:[facility] Start: 04-21-2022 End: 04-22-2022 Encounter for preprocedural laboratory examination DR ROMA BRAXTON Facility:[facility] Start: 04-11-2022 End: 04-11-[address] DAVION PATINO Facility:[facility] Start: 04-08-2022 End: 04-09-[address] ROMA BRAXTON Facility:[facility] Start: 02-16-2022 End: 02-17-[address] DAVION PATINO Facility:[facility] Start: 01-31-2022 End: 01-31-[address] ROMA BRAXTON Facility:[facility] Start: 11-24-2021 End: 11-25-2021 ambulatory CYNTHIA LUNA Facility:[facility] Start: 11-08-2021 End: 11-08-[address] ROMA BRAXTON Facility:[facility] Start: 10-11-2021 End: 10-12-[address] ROMA BRAXTON Facility:[facility] Start: 07-14-2021 End: 07-15-[address] DAVION PATINO Facility:[facility] Start: 08-27-2020 Patient encounter procedure SHASHA CARPIO Facility:[facility] Procedures Date Procedure Procedure Detail Performing Clinician Start: 08-01-2023 Follow-up visit Follow-up LISET AVILA Plan of Treatment Date Care Activity Detail Author Start: 03-02-2030 DTaP,Tdap and Td Vaccines (2 - Td or Tdap) DTaP,Tdap and Td Vaccines (2 - Td or Tdap) [facility] Start: 08-01-2024 Adult BMI Screening Adult BMI Screening [facility] Start: 08-01-2024 Tobacco Screening Tobacco Screening [facility] Start: 04-27-2020 Administration of varicella zoster vaccine Zoster (Shingles) Vaccine (2 of 2) [facility] Start: 2019 Fall Risk Screening Fall Risk Screening [facility] Start: 1972 Adult BMI Follow Up Plan Adult BMI Follow Up Plan [facility] Start: 1972 Diabetic foot examination Diabetic Foot Exam [facility] Start: 1966 Depression Screening Depression Screening [facility] Start: 1954 Glaucoma screening Diabetic Ophthalmology Exam [facility] Start: 1955 Medicare Annual Wellness Visit Medicare Annual Wellness Visit [facility] Immunizations Immunization Date Immunization Notes Care Provider Fa cility 03-02-2020 zoster vaccine, unspecified formulation Ppc Pacer [facility] Payers Date Payer Category Payer Unknown [employer] [id number] 2022-Present [phone] [address] [place] [address] [id number] 2020 Unknown [id number] 1959 Unknown [id number] 1959 Unknown [id number] 1954 Unknown [id number] 2.16.840.1.606835.3.579.2.593 1954 Unknown [id number] 2.16.840.1.581167.3.579.2.593 1954 Unknown [id number] 2.16.840.1.464574.3.579.2.593 1954 Unknown [id number] 2.16.840.1.444369.3.579.2.593 1954 Unknown [id number] 2.16.840.1.571340.3.579.2.593 1954 Unknown [id number] 2.16.840.1.697609.3.579.2.593 1954 Unknown [id number] 2.16.840.1.391625.3.579.2.593 1954 Unknown [id number] 2.16.840.1.004474.3.579.2.593 1954 Unknown [id number] 2.16.840.1.338857.3.579.2.593 1954 Unknown [id number] 2.16.840.1.477790.3.579.2.593 1954 Unknown [id number] 2.16.840.1.728838.3.579.2.593 1954 Unknown [id number] 2.16.840.1.696408.3.579.2.593 1954 Unknown [id number] 2.16.840.1.667398.3.579.2.593 1954 Unknown [id number] 2.16.840.1.686528.3.579.2.1286 1954 Unknown [id number] 2.16.840.1.969281.3.579.2.1286 1954 Unknown [id number] 2.16.840.1.494874.3.579.2.1286 1954 Unknown [id number] 2.16.840.1.409415.3.579.2.1286 1954 Unknown [id number] 2.16.840.1.209839.3.579.2.1259 1954 Unknown [id number] 2.16.840.1.389849.3.579.2.1259 1954 Unknown [id number] 2.16.840.1.314319.3.579.2.1259 1954 Unknown [id number] 2.16.840.1.309446.3.579.2.1259 1954 Unknown [id number] 2.16.840.1.060809.3.579.2.1259 1954 Unknown [id number] 2.16.840.1.612925.3.579.2.1259 Social History Date Type Detail Facility Start: 08-01-2023 Tobacco smoking stat [facility] Ex-smoker [facility] History of tobacco use Current smoker [facility] Start: 08-01-2023 Tobacco use and exposure Forme r smokeless tobacco user [facility] Start: 08-01-2023 Alcohol intake Ex-drinker (finding) [facility] Start: 08-13-2020 End: 08-01-2023 History of Social function [facility] Start: 08-13-2020 End: 08-01-2023 Tobacco use panel [facility] Housing Instability Unknown [facility] Start: 1955 Sex Assigned At Not on file P [facility] Clinical Notes 10-11-2021 to 08-29-2023 Telephone Encounter - Danika Hopkins RN - 08/29/2023 10:51 AM ESTTelephone Encounter - Danika Hopkins RN - 08/29/2023 10:51 AM Charbel Peguero MD - 08/01/2023 9:00 AM EST Note Date & Type Note Facility 08-29-2023 Miscellaneous Notes Formattin g of this note might be different from the original. [facility] them in order to fill the med. Your fax has been successfully sent to [phone] at [phone]. [facility]. documented in this encounter [facility] 08-29-2023 Telephone encount er Note Received fax from [facility] that they need xarelto rx.sent to them in order to fill the med. Your fax has been successfully sent to [phone] at [phone]. [facility] 08-17-2023 Miscellaneous Notes Formattin g of this note might be different from the original. Patient calls today - was seen earlier this month. He [facility] the [facility] indicating why he is on the Xarelto so conventional underwriter will fax over the last OPN to [phone] (done at [phone]). He will also need a new [facility] to the [facility]. Will set that up and look to see when signed and this can also be faxed to the [facility] at the same number above. Does he have recent blood work? He would qualify for higher dose of Xarelto based on October lab work Images from the original note were not included. documented in this encounter [facility] 08-17-2023 Telephone encount er Note Patient calls today - was seen earlier this month. He needs [facility] the [facility] indicating why he is on the Xarelto so conventional underwriter will fax over the last OPN to [phone] (done at [phone]). He will also need a new [facility] to the [facility]. Will set that up and look to see when signed and this can also be faxed to the [facility] at the same number above. [facility] 08-17-2023 Telephone encount er Note Does he have recent blood work? He would qualify for higher dose of Xarelto based on October lab work [facility] Work Phone: 08-17-2023 Telephone encount er Note Images from the original note were not included. [facility] 08-01-2023 History of Presen t illness Narrative I agree with the findings in the scanned document. documented in this encounter [facility] 06-01-2022 Note CONSULTATION CONSULTATION DATE: 06/01/2022 HISTORY OF PRESENT ILLNESS: This is a 66-year-old male returning to the clinic status post bilateral RFA of L2, L3 and L4, L5 last completed on 04/25/2022. The patient is reporting 80% relief which is ongoing for him. Prior to the RFA, he had bilateral leg pain and that has been completely mitigated with the procedures. He feels stronger in his legs. He is able to walk farther, stand longer and be more active. He denies any vasomotor weakness. Current medications include Ambien, Celebrex, baby aspirin, Xarelto and tizanidine. His pain is 0/10 today, but will increase to 2-3/10 with lifting, pushing, pulling and prolonged standing and walking, but overall he is doing well. Patient's REVIEW OF SYSTEMS / PAST MEDICAL HISTORY / ALLERGIES and IMAGES have been reviewed and they are noted on the chart. PHYSICAL EXAM: VITAL SIGNS: Blood pressure is 150/85. Heart rate is 75. Temperature is 96. He is 5'11 , weighs 100.4 kg. GENERAL IMPRESSION: Pleasant, appropriate, no acute distress. FOCUSED EXAM - BACK: Range of motion is functional in lateral rotation and flexion/extension. No reproduction of spinal axial pain upon compression of the facets. Bilateral paravertebral muscles are taut but non-spasmodic. Kathy's point non-tender bilaterally. MUSCULOSKELETAL: Slight muscle atrophy noted to bilateral lower extremities. Motor is 4/5. Walks with a stable gait. NEUROLOGICAL: Lower extremity radicular pain is intact with +1 bilateral patellar and Achilles reflexes. DIAGNOSIS: Lumbar spondylosis, lumbar degenerative disc disease and chronic lower back pain. PLAN: Overall, the patient is doing quite well. I did recommend adding magnesium to his vitamin regimen as well as using a menthol heat rub prior to putting heat pad on. He is encouraged to continue with exercises and seated stretches were demonstrated for him. We will see him in the clinic in three months' time unless otherwise indicated. The patient is in agreement. [facility] 02-16-2022 Note CONSULTATION CONSULTATION DATE: 02/16/2022 HISTORY OF PRESENT ILLNESS: This is a pleasant, 66-year-old gentleman returning to the clinic status post #2 bilateral MBB of L2, L3 and L4, L5, which was completed on 01/31/2022. The patient stated he received 80% relief for 5-6 days. During that time, he feels he was walking more upright, tolerated physical activity and his walks in the neighborhood during that time. He does rate his pain 5/10 today and, with increased activity, he does feel a sharpness at the gluteal folds bilaterally. Activities that aggravate his pain are twisting, pushing, pulling, sitting, walking, lifting and bending. The patient prefers to use ice and feels, after activity, the ice is more beneficial to him to decrease his pain. Current medications include ibuprofen 400 mg b.i.d., Ambien, tizanidine, Vitamin D and B12. He is also on Xarelto. Patient's REVIEW OF SYSTEMS / PAST MEDICAL HISTORY / ALLERGIES and IMAGES have been reviewed and they are noted on the chart. PHYSICAL EXAM: VITAL SIGNS: Blood pressure 161/93, heart rate is 68. Temperature is 97.1. He is 5'11 and weighs 105 kg. GENERAL APPEARANCE: Pleasant, appropriate, in no acute distress.. FOCUSED EXAM - BACK: Range of motion is guarded in lateral rotation and flexion/extension. Reproduction of spinal axial pain noted to direct compression along the lumbar facets of L2, L3 and L4, L5 bilaterally with radiating pain to bilateral gluteal folds. Fullness is palpated as well, indicated of facet arthropathy, lumbar spondylosis. Kathy's point is non-tender. MUSCULOSKELETAL: Motor is intact, 4/5 bilaterally. Just slight muscle atrophy noted to bilateral lower extremities. Patient does not use assistive device. Walks with a steady gait. NEUROLOGICAL: Patellar and Achilles reflexes are intact. 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 IMPRESSION: Lumbar degenerative disc disease, lumbar spondylosis, spinal axial lower back pain. PLAN: We will proceed with radiofrequency ablation, starting on the left side, subsequently move to the right of L2, L3 and L4, L5. Patient was encouraged to continue with the stretching and a heat rub application. I did encourage him to start magnesium glycinate 400 mg q.h.s. The patient will be followed up in the office post procedure, and the patient is in agreement of the plan. [facility] 11-24-2021 Note CONSULTATION CONSULTATION DATE: 11/24/2021 This is a pleasant 66-year-old male returning from his #1 bilateral MBB to L2, L3 and L4, L5 completed on 11/08/2021 that afforded him 80% relief for three days. The patient recalls the decrease in pain as night and day. He stated he was able to be more active around the house and in the yard with no pain. Today he reports the pain as 7 out of 10 and it has returned to baseline. He describes it as sharp. He denies radicular pain below the knee. He does have some irritation to bilateral anterior thighs that originate from his lumbar spine. Activities such as transitioning position, standing, walking, lifting and bending aggravate his pain. He denies decreased in his symptoms. Current medications include metformin, Ambien, tizanidine, vitamin B and D. REVIEW OF SYSTEMS, PAST MEDICAL HISTORY, ALLERGIES AND IMAGES: Have been reviewed and noted in the chart. PHYSICAL EXAM: VITAL SIGNS: Blood pressure 155/89, heart rate I s 62. Height is 5'11 , weighs 106 kg. GENERAL APPEARANCE: Pleasant, appropriate and in no acute distress. FOCUSED EXAM: BACK: Range of motion is guarded in lateral rotation and flexion and extension. Bilateral paravertebral muscles are non-spasmodic but taut. Reproduction of spinoaxial pain and patient's symptomatology to direct compression along the posterior elements of the facets of L2, L3 and L4, L5 concurrent with ill facet arthropathy, lumbar spondylosis. Kathy's point is nontender bilaterally. MUSCULOSKELETAL: Motor is intact, 4 out of 5 bilaterally. Does not use assistive device. Gait is steady. NEUROLOGICAL: Patchy hypesthesia noted along L3, L4 dermatomes bilaterally. Blunted bilateral patellar reflexes. DIAGNOSIS: Lumbar spondylosis, lumbar degenerative disk, spinoaxial lower back pain. PLAN: We will authorize for #2 bilateral MBB to L2, L3 and L4, L5. He is encouraged to continue with his heat rub and stretching daily. I encouraged him to start a multivitamin in addition to magnesium glycinate 400 mg q.h.s. The patient will be followed up in the office post-procedure and the patient agrees to move forward with plan of care. [facility] Signed and Approved by: CYNTHIA LUNA . 11/30/2021 13:47:00 [facility] 10-11-2021 Note CONSULTATION PAIN MANAGEMENT CONSULTATION CHIEF COMPLAINT: Low back pain, bilateral posterior thigh pain. HISTORY OF PRESENT ILLNESS: This is a very pleasant, 66-year-old gentleman who was referred to us by Dr. Davion Patino. The patient has had chronic low back pain, 3+ months, that has been gradually increasing. The patient has attended physical therapy approximately two months ago without much relief. The patient rates the pain as a 5/10. Sitting mitigates the pain. Standing, walking, lifting aggravate the pain. Bending aggravates the pain. The patient does lean forward on a cart when he goes shopping. The patient currently takes ibuprofen, metformin 1000 mg b.i.d., Ambien q.h.s., tizanidine 4 mg and hydrochlorothiazide, hydrocodone/acetaminophen, which he received 28 tablets in July. The patient's PAST MEDICAL HISTORY / SURGICAL HISTORY / REVIEW OF SYSTEMS are noted on the chart, along with the MEDICATION LIST / ALLERGIES and RADIOLOGICAL IMAGES. X-ray was reviewed in office today. PHYSICAL EXAM: Upon physical examination, this is a pleasant, cooperative gentleman who does not appear to be in any acute distress. Vital Signs: Stable at 176/80 with a heart rate of 64. At a height of 5'11 , the patient weighs 107 kg. Focused Evaluation: Loss of lumbar lordosis noted. Extension, compression, direct palpation along the posterior elements aggravate the patient's pain, concordant with fascicular arthropathy, lumbar spondylosis. Extremities: No pedal edema is noted. Musculoskeletal: Intact, however, unstable in the lower extremities bilaterally. The patient has atrophic changes globally, clinically consistent with low T. Neurologically: No radicular symptomatology is noted. Psychiatrically: Affect is appropriate. IMPRESSION: Lumbar degenerative disc disease, lumbar spondylosis, decreased muscle mass, clinical low T. PLAN: We will schedule the patient for diagnostic lumbar medial branch block under fluoroscopy at the level of L2, L3 and L4, L5. The patient understands. Questions/answers were done and he will be followed up in the office. CC: Davion Patino M.D. [facility] Signed and Approved by: DR ROMA BRAXTON . 10/25/2021 11:24:00 [facility] Evaluation note Diagnosis Automatic implantable cardioverter-defibrillator in situ - [place]- Primary documented in this encounter [facility] SystemInstructionsNot on filedocumented in this encounter [facility] Data[facility] SystemInstructionsNot on filedocumented in this encounter [facility] Summary Purpose Family History No Family History Records FoundNo Family History Records FoundNo Family History Records FoundNo Family History Records FoundNo Family History Records Found Advance Directives No Advanced Directives Records FoundLatest Code Status on File Code Status Date Activated Date Inactivated Comments Full Code 12/26/2021 11:11 AM 12/27/2021 4:25 AM Additional Source Comments (unrecognized sect ion and content) No Status Records FoundNo Status Records FoundNo Status Records FoundNo Status Records FoundNo Status Records Found INFORMATION SOURCE (unrecogn ized section and content) DATE CREATED AUTHOR 08/28/2020 [facility] DATE CREATED AUTHOR AUTHOR'S ORGANIZ ATION 08/02/2021 [place] [facility] DATE CREATED AUTHOR AUTHOR'S ORGANIZ ATION 06/20/2022 [facility] DATE CREATED AUTHOR AUTHOR'S ORGANIZ ATION 12/07/2023 [facility] DATE CREATED AUTHOR AUTHOR'S ORGANIZ ATION 01/09/2024 [facility] EPIC Reason for Visit (unrecogniz ed section and content) Reason Comments Device Check Reason Onset Date Comments xarelto 08/17/2023 Reason Onset Date Comments Med Refill 08/29/2023 Care Teams (unrecognized sec tion and content) Client Support Coordinator Relationship Specialty Start Date End Date Davion Patino MD [address], [facility] [address] [place] [id number] PCP - General 01/27/14 Client Support Coordinator Relationship Specialty Start Date End Date Davion Patino MD [address] [facility], [facility] [address] [place] [id number] PCP - General 01/27/14 FOR RECORDS PERTAINING TO PATIENTS WHO ARE OR HAVE BEEN ENROLLED IN A CHEMICAL DEPENDENCY/SUBSTANCEABUSE PROGRAM, SOME INFORMATION MAY BE OMITTED. This clinical summary was aggregated from multiple sources. Caution should be exercised in using it in the provision of clinical care. This summary normalizes information from multiple sources, and as a consequence, information in this document may materially change the coding, format and clinical context of patient data. In addition, data may be omitted in some cases. CLINICAL DECISIONS SHOULD BE BASED ON THE PRIMARY CLINICAL RECORDS. [facility] [employer] [facility]. provides no warranty or guarantee of the accuracy or completeness of information in this document.
--- NOTE | 2024-01-14 15:02 | P.CN_ITS ---
Consult Note: HPI Data of Consult Patient: new to practice Consult date: 01/14/24 Requesting Physician: Jalen Griffin MD Primary Care Provider: VLAD BLACK Family Provider: VLAD BLACK Consult Narrative Reason for consult: right knee pain Narrative: 68yom who presents for evaluation. longstanding right knee pain. has had steroid injections in right knee, but only lasted for a brief period of time. continues in provider directed home exercise program. denies adverse med side effects. cc:: CC: Jalen Griffin MD Review of Systems ROS Status of ROS 10 or more systems reviewed and unremark able except as noted in history and below Exam Narrative Exam Narrative: Psych-alert and oriented x 3.? Attentive and appropriate, constitutionally normal, displays normal mood and affect per situation.? There are no obvious deficits in memory, reasoning, or intellect. Extremities-lower extremities are warm with minimal edema and palpable pulses. Knee-examination of the right knee reveals tenderness to palpation over the superior, inferior, lateral, and medial aspect of the knee.? Some swelling is noted without erythema. Pain is elicited with flexion and extension of the knee both actively and passively.? Some grinding is noted with these motions.? There is no notable ligamental laxity or instability.? Coordination remains intact.? Gait remains antalgic. Assessment and Plan Assessment and Plan (1) Osteoarthritis of right knee: Qualifiers: Osteoarthritis type: primary Qualified Code(s): M17.11 - Unilateral primary osteoarthritis, right knee Plan 68yom who presents for evaluation. failed conservative measures, failed steroid injection of right knee. given symptoms and imaging, which shows right knee osteoarthritis, prudent to attempt right knee intraarticular injection with hyaluronic acid. he is in agreement. will do in office. meds reviewed, no changes. follow up for in office injection.
== END 2024-01-14 13:35 | disposition home or self-care (01) ==
LOC: PM 13:35
PROVIDERS: Family Provider Internal Medicine; PCP Internal Medicine; Visit Provider Anesthesiology
DX: M17.11 Unilateral primary osteoarthritis, right knee (principal)
CPT/HCPCS: G0463

== ENCOUNTER 2024-01-21 13:35 | Outpatient (OUT) | payer MEDICARE, SELFPAY ==
--- OUTSIDE RECORDS SUMMARY | 2024-01-21 13:45 | XMS_ITS | CCD ---
Author Organization [facility] Care Team Providers Care Superintendent Sales Name Role Phone SARIAHSHASHA JOY Referring Unavailable PROVIDER, UNKNOWN Attending Unavailable PROVIDER, [...] Attending Unavailable SOFIA, DR CHU Admitting Unavailable ZICLAIRE, DR ALE Dhaliwal Consulting Unavailable SOFIA, DR CHU Consulting Unavailable [...] Unavailable Davion Patino MD Primary Care Provider [phone] DAVION PATINO Attending Unavailable DAVION PATINO Attending Unavailable DAVION PATINO Attending Unavailable MELINDA CAMPBELL Attending Unavailable MELINDA CAMPBELL Referring Unavailable MELINDA CAMPBELL Attending Unavailable Jalen Griffin MD Attending Unavailable DAVION PATINO Referring Unavailable DAVION PATINO Primary Care Unavailable LISET AVILA Referring Unavail able DAVION PATINO B Primary Care Unavailable LISET AVILA Attending Unavail able DAVION PATINO Referring Unavailable DAVION PATINO Primary Care Unavailable DAVION PATINO Referring Unavailable DAVION PATINO Primary Care Unavailable DAVION PATINO Referring Unavailable DAVION PATINO B Primary Care Unavailable KOKI ROSENBERG Attending Unavailable DAVION PATINO Referring Unavailable DAVION PATINO Primary Care Unavailable Allergies Allergy Classification Reported Allergen(s) Allergy Type Date of Onset Reaction(s) Facility (3 sources) Penicillins; Translations: [PENICILLINS] Drug allergy (disorder) 3 [facility] Repository (4 sources) hydrALAZINE; Translations: [HYDRALAZINE] Drug Allergy 9 [facility] (3 sources) Penicillins Propensity to adverse reactions to drug 9 [facility] Medications Current Medications Medication Drug Class(es) [...] capsule (3 sources) alpha-Adrenergic Sheri Start: 08-06-19 tamsulosin (FLOMAX) 0.4 mg capsule daily. 3 [...] tablet (3 sources) Vitamin B12 Start: 07-24-19 take 1 tablet by mouth in the morning cyanocobalamin 500 MCG tablet Take 1 tablet (500 mcg total) by mouth in the morning. 0 07/24/2021 Active zolpidem tartrate 10 mg oral tablet (3 sources) gamma-Aminobutyric Acid-ergic Agonist Start: 10-15-19 take 1 tablet by mouth once daily [...] Heart failure; Translations: [Heart failure, unspecified] Onset: 01-18-2024 10-29-2018 Chronic Coronary atherosclerosis and other heart [...] [Essential (primary) hypertension] Onset: 10-29-2018 10-29-2018 Chronic Nonspecific chest pain (1 source) Other chest pain; Translations: [Other chest pain] Onset: 01-18-2024 Episodic Other lower respiratory disease (1 source) Shortness of breath; Translations: [Shortness of breath] Onset: 01-18-2024 Episodic Other nervous system disorders (1 source) Other [...] JOSE FIGUEROA Date: 2022-05-25 18:13 Normal [facility] POINT OF CARE GLUCOSEon 10-0 Glucose [Mass/Vol] 121 mg/dL Critically high 74-106 [facility] Comment on above: Performed By: #### P OCGLUC #### [facility] [address] [place] [address] Dr. Colin Good Covid-19 PCR ([facility])on 03-25 SARS-CoV-2 (COVID-19) RNA CELSO+probe Ql (Unsp spec) Not detected Normal NOT DETECTED [facility] Comment on above: Result Comment: This test is not yet approved or cleared by the [place] FDA. When there are no FDA-approved or cleared tests available, and other criteria are met, FDA can make tests available under an emergency access mechanism called an Emergency Use Authorization (EUA). The EUA for this test is supported by the [place] of Health and Human Service's (HHS's) declaration [...] SARS-CoV-2. Performed By: #### C VDTBH #### [facility] [address] [place] [address] Dr. Colin Good POINT OF CARE GLUCOSEon 03-24 Glucose [Mass/Vol] 112 mg/dL Critically high 74-106 [facility] Comment on above: Performed By: #### P OCGLUC #### [facility] [address] [place] [address] Dr. Colin Good Covid-19 PCR ([facility])on 03-23 SARS-CoV-2 (COVID-19) RNA CELSO+probe Ql (Unsp spec) Not detected Normal NOT DETECTED [facility] Comment on above: Result Comment: This test is not yet approved or cleared by the [place] FDA. When there are no FDA-approved or cleared tests available, and other criteria are met, FDA can make tests available under an emergency access mechanism called an Emergency Use Authorization (EUA). The EUA for this test is supported by the [place] of Health and Human Service's (HHS's) declaration [...] SARS-CoV-2. Performed By: #### C VDTBH #### [facility] [address] [place] [address] Dr. Colin Good POINT OF CARE GLUCOSEon 01-20 Glucose [Mass/Vol] 122 mg/dL Critically high 74-106 [facility] Comment on above: Performed By: #### P OCGLUC #### [facility] [address] [place] [address] Dr. Colin Good POINT OF CARE GLUCOSEon 10-21 Glucose [Mass/Vol] 142 mg/dL Critically high 74-106 [facility] Comment on above: Performed By: #### P OCGLUC #### [facility] [address] [place] [address] Dr. Colin Good Q - CBC W/DIFF AND PLTon BASOABS 61 cells/uL Normal 0-200 [facility] Comment on above: Order Comment: [facility] performed at: [facility], [address] [place] [address], [address] [place] [address], [phone], Aeronautical Engineering Teacher: Jorje Velázquez MD [facility] Date/Time: [facility] Results Received Date/Time: [facility] Reported Date/Time: Performed By: #### 1 0231A, 42A #### [facility] [address] [place] [address] Basophils/100 WBC (Bld) 0.6 % Normal [facility] Specialist Comment on above: Order Comment: [facility] performed at: [facility], [address] , [address] [place] [address], [phone], Aeronautical Engineering Teacher: Jorje Velázquez MD [facility] Date/Time: [facility] Received Date/Time: [facility] Reported Date/Time: Performed By: #### 1 0231A, 42A #### [facility] [address] [place] [address] EOSABS 286 cells/uL Normal 15-500 [facility] Comment on above: Order Comment: [facility] performed at: [facility], [address] [place] [address], [address] [place] [address], [address] [place] [address], Aeronautical Engineering Teacher: Jorje Velázquez MD [facility] Date/Time: [facility] Received Date/Time: [facility] Reported Date/Time: Performed By: #### 1 0231A, 42A #### [facility] [address] [place] [address] Eosinophils/100 WBC (Bld) 2.8 % Normal [facility] Comment on above: Order Comment: [facility] performed at: [place], [address] [place] [address], [address] [place] [address], [address] [place] [address], Aeronautical Engineering Teacher: Jorje Velázquez MD [facility] Date/Time: [facility] Results Received Date/Time: [facility] Reported Date/Time: Performed By: #### 1 , 42A #### [facility] [address] [place] [address] Erythrocyte distribution width (RBC) [Ratio] 12.4 % Normal 11.0-15.0 [facility] Comment on above: Order Comment: [facility] performed at: [place], [address] [facility], [address] [place] [address], [address] [place] [address], Aeronautical Engineering Teacher: Jorje Velázquez MD [facility] Date/Time: [facility] Received Date/Time: [facility] Reported Date/Time: Performed By: #### 1 0231A, 42A #### [facility] [address] [place] [address] Hematocrit (Bld) [Volume fraction] 38.7 % Normal 38.5-50.0 [place] [facility] Comment on above: Order Comment: [facility] performed at: [place], [address] [facility], [address] [place] [address], [address] [place] [address], Aeronautical Engineering Teacher: Jorje Velázquez MD [facility] Date/Time: [facility] Received Date/Time: [facility] Reported Date/Time: Performed By: #### 1 0231A, 42A #### [facility] [address] [place] [address] Hemoglobin (Bld) [Mass/Vol] 12.9 g/dL Low 13.2-17.1 [facility] Comment on above: Order Comment: [facility] performed at: [place], [address] [facility], [address] [place] [address], [address] [place] [address], Aeronautical Engineering Teacher: Jorje Velázquez MD [facility] Date/Time: [facility] Results Received Date/Time: [facility] Reported Date/Time: Performed By: #### 1 0231A, 42A #### [facility] [address] [place] [address] Lymphocytes (Bld) [#/Vol] 1.785 10*3/uL Normal 850-3900 [facility] Comment on above: Order Comment: [facility] performed at: [place], [address] [facility], [address] [place] [address], [address] [place] [address], Aeronautical Engineering Teacher: Jorje Velázquez MD [facility] Date/Time: [facility] Results Received Date/Time: [facility] Reported Date/Time: Performed By: #### 1 0231A, 42A #### [facility] [address] [place] [address] Lymphocytes/100 WBC (Bld) 17.5 % Normal [facility] Comment on above: Order Comment: [facility] performed at: [place], [address] [facility], [address] [place] [address], [address] [place] [address], Aeronautical Engineering Teacher: Jorje Velázquez MD [facility] Date/Time: [facility] Received Date/Time: [facility] Reported Date/Time: Performed By: #### 1 023, 42A #### [facility] [address] [place] [address] MCH (RBC) [Entitic mass] 29.3 pg Normal 27.0-33.0 [facility] Comment on above: Order Comment: [facility] performed at: [employer], [facility], [address] [place] [address], [address] [place] [address], [address] [place] [address], Aeronautical Engineering Teacher: Jorje Velázquez MD [facility] Date/Time: [facility] Received Date/Time: [facility] Reported Date/Time: Performed By: #### 1 023, 42A #### [facility] [address] [place] [address] MCHC (RBC) [Mass/Vol] 33.3 g/dL Normal 32.0-36.0 [facility] Comment on above: Order Comment: [facility] performed at: [place], [address] [place] [address], [address] [place] [address], [address] [place] [address], Aeronautical Engineering Teacher: Jorje Velázquez MD [facility] Date/Time: [facility] Received Date/Time: [facility] Reported Date/Time: Performed By: #### 1 023, 42A #### [facility] [address] [place] [address] MCV (RBC) [Entitic vol] 88.0 fL Normal 80.0-100.0 [facility] Comment on above: Order Comment: [facility] performed at: [place], [address] [place] [address], [address] [place] [address], [address] [place] [address], Aeronautical Engineering Teacher: Jorje Velázquez MD [facility] Date/Time: [facility] Results Received Date/Time: [facility] Reported Date/Time: Performed By: #### 1 0231A, 42A #### [facility] [address] [place] [address] MONOABS 612 cells/uL Normal 200-950 [facility] Comment on above: Order Comment: [facility] performed at: [place], [address] [facility], [address] [place] [address], [address] [place] [address], Aeronautical Engineering Teacher: Jorje Velázquez MD [facility] Date/Time: [facility] Results Received Date/Time: [facility] Reported Date/Time: Performed By: #### 1 0231A, 42A #### [facility] [address] [place] [address] Monocytes/100 WBC (Bld) 6.0 % Normal [facility] Comment on above: Order Comment: [facility] performed at: [place], [address] [facility], [address] [place] [address], [address] [place] [address], Aeronautical Engineering Teacher: Jorje Velázquez MD [facility] Date/Time: [facility] Results Received Date/Time: [facility] Reported Date/Time: Performed By: #### 1 1A, 42A #### [facility] [address] [place] [address] Neutrophils (Bld) [#/Vol] 7.456 10*3/uL Normal 1213-6188 [facility] Comment on above: Order Comment: [facility] performed at: [place], [address] , [address] [place] [address], [address] [place] [address], Aeronautical Engineering Teacher: Jorje Velázquez MD [facility] Date/Time: [facility] Results Received Date/Time: [facility] Reported Date/Time: Performed By: #### 1 0231A, 42A #### [facility] [address] [place] [address] Neutrophils/100 WBC (Bld) 73.1 % Normal [facility] Specialist Comment on above: Order Comment: [facility] performed at: [employer], [facility], [address] [place] [address], [address] [place] [address], [address] [place] [address], Aeronautical Engineering Teacher: Jorje Velázquez MD [facility] Date/Time: [facility] Received Date/Time: [facility] Reported Date/Time: Performed By: #### 1 0231A, 42A #### [facility] [address] [place] [address] Platelet mean volume (Bld) [Entitic vol] 12.3 fL Normal 7.5-12.5 [facility] Specialist Comment on above: Order Comment: [facility] performed at: [place], [address] [place] [address], [address] [place] [address], [address] [place] [address], Aeronautical Engineering Teacher: Jorje Velázquez MD [facility] Date/Time: [facility] Results Received Date/Time: [facility] Reported Date/Time: Performed By: #### 1 0231A, 42A #### [facility] [address] [place] [address] Platelets (Bld) [#/Vol] 235 10*3/uL Normal 140-400 [facility] Comment on above: Order Comment: [facility] performed at: [place], [address] [place] [address], [address] [place] [address], [address] [place] [address], Aeronautical Engineering Teacher: Jorje Velázquez MD [facility] Date/Time: [facility] Results Received Date/Time: [facility] Reported Date/Time: Performed By: #### 1 0231A, 42A #### [facility] [address] [place] [address] RBC (Bld) [#/Vol] 4.40 10*6/uL Normal 4.20-5.80 [facility] Specialist Comment on above: Order Comment: [facility] performed at: [place], [address] [place] [address], [address] [place] [address], [address] [place] [address], Aeronautical Engineering Teacher: Jorje Velázquez MD [facility] Date/Time: [facility] Results Received Date/Time: [facility] Reported Date/Time: Performed By: #### 1 0231A, 42A #### [facility] [address] [place] [address] WBC (Bld) [#/Vol] 10.2 10*3/uL Normal 3.8-10.8 [facility] Comment on above: Order Comment: [facility] performed at: [employer], [facility], [address] [facility], [address] [place] [address], [address] [place] [address], Aeronautical Engineering Teacher: Jorje Velázquez MD [facility] Date/Time: [facility] Results Received Date/Time: [facility] Reported Date/Time: Performed By: #### 1 0231A, 42A #### [facility] [address] [place] [address] Q - COMPREHENSIVE METABOLIC PANEL W/EGFRon 08-01-2021 Albumin [Mass/Vol] 4.7 g/dL Normal 3.6-5.1 [facility] Comment on above: Order Comment: [facility] performed at: [place], [address] , [address] [place] [address], [address] [place] [address], Aeronautical Engineering Teacher: Jorje Velázquez MD [facility] Date/Time: [facility] Results Received Date/Time: [facility] Reported Date/Time: Performed By: #### 1 0231A, 42A #### [facility] [address] [place] [address] Albumin/Globulin [Mass ratio] 2.6 {ratio} High 1.0-2.5 [facility] Comment on above: Order Comment: [facility] performed at: [employer], [facility], [address] , [address] [place] [address], [address] [place] [address], Aeronautical Engineering Teacher: Jorje Velázquez MD [facility] Date/Time: [facility] Results Received Date/Time: [facility] Reported Date/Time: Performed By: #### 1 0231A, 42A #### [facility] [address] [place] [address] ALP [Catalytic activity/Vol] 38 U/L Normal 35-144 [facility] Comment on above: Order Comment: [facility] performed at: [place], [address] [facility], [address] [place] [address], [address] [place] [address], Aeronautical Engineering Teacher: Jorje Velázquez MD [facility] Date/Time: [facility] Results Received Date/Time: [facility] Reported Date/Time: Performed By: #### 1 0231A, 42A #### [facility] [address] [place] [address] ALT [Catalytic activity/Vol] 15 U/L Normal 9-46 [facility] Comment on above: Order Comment: [facility] performed at: [facility], [address] [place] [address], [address] [place] [address], [address] [place] [address], Aeronautical Engineering Teacher: Jorje Velázquez MD [facility] Date/Time: [facility] Results Received Date/Time: [facility] Reported Date/Time: Performed By: #### 1 0231A, 42A #### [facility] [address] [place] [address] AST [Catalytic activity/Vol] 15 U/L Normal 10-35 [facility] Comment on above: Order Comment: [facility] performed at: [place], [address] [place] [address], [address] [place] [address], [address] [place] [address], Aeronautical Engineering Teacher: Jorje Velázquez MD [facility] Date/Time: [facility] Results Received Date/Time: [facility] Reported Date/Time: Performed By: #### 1 0231A, 42A #### [facility] [address] [place] [address] Bilirubin [Mass/Vol] 0.6 mg/dL Normal 0.2-1.2 [facility] Specialist Comment on above: Order Comment: [facility] performed at: [place], [address] [facility], [address] [place] [address], [address] [place] [address], Aeronautical Engineering Teacher: Jorje Velázquez MD [facility] Date/Time: [facility] Results Received Date/Time: [facility] Reported Date/Time: Performed By: #### 1 0231A, 42A #### [facility] [address] [place] [address] BUN/CREA 18 NOT APPLICABLE Normal 6-22 [facility] Comment on above: Order Comment: [facility] performed at: [facility], [address] [place] [address], [address] [place] [address], [address] [place] [address], Aeronautical Engineering Teacher: Jorje Velázquez MD [facility] Date/Time: [facility] Results Received Date/Time: [facility] Reported Date/Time: Performed By: #### 1 0231A, 42A #### [facility] [address] [place] [address] Calcium [Mass/Vol] 9.6 mg/dL Normal 8.6-10.3 [facility] Comment on above: Order Comment: [facility] performed at: [facility], [address] [place] [address], [address] [place] [address], [address] [place] [address], Aeronautical Engineering Teacher: Jorje Velázquez MD [facility] Date/Time: [facility] Results Received Date/Time: [facility] Reported Date/Time: Performed By: #### 1 0231A, 42A #### [facility] [address] [place] [address] Chloride [Moles/Vol] 104 mmol/L Normal 98-110 [facility] Comment on above: Order Comment: [facility] performed at: [facility], [address] [facility], [address] [place] [address], [address] [place] [address], Aeronautical Engineering Teacher: Jorje Velázquez MD [facility] Date/Time: [facility] Results Received Date/Time: [facility] Reported Date/Time: Performed By: #### 1 0231A, 42A #### [facility] [address] [place] [address] CO2 [Moles/Vol] 33 mmol/L High 20-32 [facility] Comment on above: Order Comment: [facility] performed at: [place], [address] [place] [address], [address] [place] [address], [address] [place] [address], Aeronautical Engineering Teacher: Jorje Velázquez MD [facility] Date/Time: [facility] Results Received Date/Time: [facility] Reported Date/Time: Performed By: #### 1 0231A, 42A #### [facility] [address] [place] [address] Creatinine [Mass/Vol] 1.20 mg/dL Normal 0.70-1.25 [facility] Comment on above: Order Comment: [facility] performed at: [place], [address] [place] [address], [address] [place] [address], [address] [place] [address], Aeronautical Engineering Teacher: Jorje Velázquez MD [facility] Date/Time: [facility] Results Received Date/Time: [facility] Reported Date/Time: Result Comment: For patients >49 years of age, the reference limit for Creatinine is approximately 13% higher for people identified as -[place]. Performed By: #### 1 0231A, 42A #### [facility] [address] [place] [address] eGFRAA 73 mL/min/1.73m2 Normal > OR = 60 [place] [facility] Comment on above: Order Comment: [facility] performed at: [place], [address] [place] [address], [address] [place] [address], [address] [place] [address], Aeronautical Engineering Teacher: Jorje Velázquez MD [facility] Date/Time: [facility] Results Received Date/Time: [facility] Reported Date/Time: Performed By: #### 1 0231A, 42A #### [facility] [address] [place] [address] eGFRNAA 61 mL/min/1.73m2 Normal > OR = 60 [facility] Comment on above: Order Comment: [facility] performed at: [place], [address] [place] [address], [address] [place] [address], [address] [place] [address], Aeronautical Engineering Teacher: Jorje Velázquez MD [facility] Date/Time: [facility] Received Date/Time: [facility] Reported Date/Time: Performed By: #### 1 0231A, 42A #### [facility] [address] [place] [address] Globulin (S) [Mass/Vol] 1.8 g/dL Low 1.9-3.7 [facility] Specialist Comment on above: Order Comment: [facility] performed at: [employer], [address] [place] [address], [address] [place] [address], [address] [place] [address], Aeronautical Engineering Teacher: Jorje Velázquez MD [facility] Date/Time: [facility] Received Date/Time: [facility] Reported Date/Time: Performed By: #### 1 0231A, 42A #### [facility] [address] [place] [address] Glucose [Mass/Vol] 126 mg/dL High 65-99 [facility] Specialist Comment on above: Order Comment: [facility] performed at: [facility], [address] [place] [address], [address] [place] [address], [address] [place] [address], Aeronautical Engineering Teacher: Jorje Velázquez MD [facility] Date/Time: [facility] Received Date/Time: [facility] Reported Date/Time: Result Comment: Fasting reference interval For someone without known diabetes, a glucose value >125 mg/dL indicates that they may have diabetes and this should be confirmed with a follow-up test. Performed By: #### 1 0231A, 42A #### [facility] Default [address] [place] [address] Potassium [Moles/Vol] 4.2 mmol/L Normal 3.5-5.3 [facility] Comment on above: Order Comment: [facility] Testing performed at: [facility], [address] [place] [address], [address] [place] [address], [address] [place] [address], Aeronautical Engineering Teacher: Jorje Velázquez MD [facility] Collection Date/Time: [facility] Results Received Date/Time: [facility] Reported Date/Time: Performed By: #### 1 0231A, 42A #### [facility] [address] [place] [address] Protein [Mass/Vol] 6.5 g/dL Normal 6.1-8.1 [facility] Comment on above: Order Comment: [facility] Testing performed at: [facility], [address] [place] [address], [address] [place] [address], [address] [place] [address], Aeronautical Engineering Teacher: Jorje Velázquez MD [facility] Collection Date/Time: [facility] Results Received Date/Time: [facility] Reported Date/Time: Performed By: #### 1 0231A, 42A #### [facility] [address] [place] [address] Sodium [Moles/Vol] 142 mmol/L Normal 135-146 [facility] Comment on above: Order Comment: [facility] Testing performed at: [facility], [address] [place] [address], [address] [place] [address], [address] [place] [address], Aeronautical Engineering Teacher: Jorje Velázquez MD [facility] Collection Date/Time: [facility] Results Received Date/Time: [facility] Reported Date/Time: Performed By: #### 1 0231A, 42A #### [facility] [address] [place] [address] Urea nitrogen [Mass/Vol] 22 mg/dL Normal 7-25 [facility] Comment on above: Order Comment: [facility] Testing performed at: [facility], [facility], [address], [address] [facility], [place], [address], Aeronautical Engineering Teacher: Jorje Velázquez MD [facility] Collection Date/Time: [id number] [facility] Results Received Date/Time: [facility] Reported Date/Time: Performed By: #### 1 0231A, 42A #### [facility] [address] [place] [address] XR LSPINE W_OBLS AND FLEX_EX Ton 07-14-2021 [...] by: ALE WILLARD Date: 2021-07-14 16:22 Normal [facility] XR CHEST PA+LATon 08-27-2020 XR CHEST [...] one more superiorly. MACRO: None Normal [facility] Encounters Encounter Date Encounter Type Care Provider Facility Start: 01-18-2024 End: 01-18-2024 ambulatory KOKI ROSENBERG [facility] Start: 01-14-2024 End: 01-14-2024 ambulatory Jalen Griffin MD Facility: [facility] Start: 01-08-2024 End: 01-08-2024 ambulatory MELINDA CAMPBELL Not Available Start: 12-11-2023 End: 12-11-2023 ambulatory MELINDA CAMPBELL Not Available Start: 12-07-2023 ambulatory LISET AVILA [facility] Start: 12-05-2023 End: 12-05-2023 ambulatory DAVION PATINO [facility] Start: 10-15-2023 End: 10-15-2023 ambulatory DAVION PATINO Not Available Start: 08-29-2023 Refill Danika Hopkins RN [facility] Comment on above: Med Refill Start: 08-17-2023 Telephone [facility] Comment on above: xarelto Start: 08-01-2023 End: 08-01-2023 Clinical Support Ppc Pacer [facility] Comment on above: Automatic implantabl e cardioverter-defibrillator in situ - [place] (Primary Dx) Start: 07-26-2023 End: 07-26-2023 ambulatory [...] for preprocedural laboratory examination DR ROMA BRAXTON [facility] Start: 04-21-2022 End: 04-22-[address] [...] Start: 08-27-2020 Patient encounter procedure SHASHA CARPIO Facility:[facility] Procedures Date Procedure Procedure Detail Performing Clinician Start: 08-01-2023 Follow-up visit Follow-up LISET AVILA Plan of Treatment Date Care Activity Detail Author Start: 03-02-2030 DTaP,Tdap and Td Vaccines (2 - Td or Tdap) DTaP,Tdap and Td Vaccines (2 - Td or Tdap) [facility] Start: 08-01-2024 Adult BMI Screening Adult BMI Screening [facility] Start: 08-01-2024 Tobacco Screening Tobacco Screening [facility] Start: 04-27-2020 Administration of varicella zoster vaccine Zoster (Shingles) Vaccine (2 of 2) [facility] Start: 2019 Fall Risk Screening Fall Risk Screening [facility] Start: 1972 Adult BMI Follow Up Plan Adult BMI Follow Up Plan [facility] Start: 1972 Diabetic foot examination Diabetic Foot Exam [facility] Start: 1966 Depression Screening [facility] Start: 1954 Glaucoma screening Diabetic Ophthalmology [facility] Start: 1955 Medicare Annual Wellness Visit Medicare Annual Wellness Visit [facility] Immunizations Immunization Date Immunization Notes Care Provider Uzma miller 03-02-2020 zoster vaccine, unspecified formulation Ppc Pacer [facility] Payers Date Payer Category Payer Unknown [id number] 2020 Medicare [id number] 2020 Unknown [id number] 1959 Unknown [id number] 1959 Unknown [id number] 1954 Unknown [id number] 2.16.84 0.1.695887.3.579.2.593 1954 Unknown [id number] 2.16.84 0.1.714758.3.579.2.593 1954 Unknown [id number] 2.16.84 0.1.663643.3.579.2.593 1954 Unknown [id number] 2.16.84 0.1.637240.3.579.2.593 1954 Unknown [id number] 2.16.84 0.1.319273.3.579.2.593 1954 Unknown [id number] 2.16.84 0.1.430168.3.579.2.593 1954 Unknown [id number] 2.16.84 0.1.624429.3.579.2.593 1954 Unknown [id number] 2.16.84 0.1.073044.3.579.2.593 1954 Unknown [id number] 2.16.84 0.1.048595.3.579.2.593 1954 Unknown [id number] 2.16.84 0.1.997708.3.579.2.593 1954 Unknown [id number] 2.16.84 0.1.593461.3.579.2.593 1954 Unknown [id number] 2.16.84 0.1.427444.3.579.2.593 1954 Unknown [id number] 2.16.84 0.1.857086.3.579.2.593 1954 Unknown [id number] 2.16.84 0.1.988390.3.579.2.1259 1954 Unknown [id number] 2.16.84 0.1.959229.3.579.2.1259 1954 Unknown [id number] 2.16.84 0.1.964034.3.579.2.1259 1954 Unknown [id number] 2.16.84 0.1.738136.3.579.2.1259 1954 Unknown [id number] 2.16.840 .1.849286.3.579.2.1259 1954 Unknown [id number] 2.16.840. 1.829222.3.579.2.1259 1954 Unknown [id number] 2.16. 840.1.723154.3.579.2.196 1954 Unknown [id number] 2.16.8 40.1.546035.3.579.2.1286 1954 Unknown [id number] 2.16.8 40.1.338057.3.579.2.1286 1954 Unknown [id number] 2.16.8 40.1.907639.3.579.2.128 1954 Unknown [id number] 2.16.8 40.1.778247.3.579.2.1286 1954 Unknown [id number] 2.16.84 0.1.561579.3.579.2.1286 1954 Unknown [id number] 2.16.84 0.1.925660.3.579.2.1286 Social History Date Type Detail Facility Start: 08-01-2023 Tobacco smoking stat us NHIS Ex-smoker [facility] History of tobacco use Current smoker [place] Start: 08-01-2023 Tobacco use and exposure Forme r smokeless tobacco user [facility] Start: 08-01-2023 Alcohol intake Ex-drinker (finding) [facility] Start: 08-13-2020 End: 08-01-2023 History of Social function [facility] Start: 08-13-2020 End: 08-01-2023 Tobacco use panel [facility] Housing Instability Unknown [facility] Start: 1955 Sex Assigned At Not on file P [facility] Clinical Notes 10-11-2021 to 08-29-2023 Telephone Encounter - Danika Hopkins RN - 08/29/2023 10:51 AM ESTTelephone Encounter - Danika Hopkins RN - 08/29/2023 10:51 AM Charbel Peguero MD - 08/01/2023 9:00 AM EST Note Date & Type Note Facility 08-29-2023 Miscellaneous Notes Formattin g of this note might be different from the original. Received fax from [place] that they need xarelto rx.sent to them in order to fill the med. Your fax has been successfully sent to [phone] at [phone]. [facility]. documented in this encounter [facility] 08-29-2023 Telephone encount er Note Received fax from [place] that they need xarelto rx.sent to them in order to fill the med. Your fax has been successfully sent to [phone] at [phone]. [facility]. [facility] 08-17-2023 Miscellaneous Notes Formattin g of this note might be different from the original. Patient calls today - was seen earlier this month. [facility] the [facility] indicating [facility] is on the Xarelto so sba underwriter will fax over the last OPN to [phone] (done at [phone]). He will also need a new prescription [...] were not included. documented in this encounter [facility] 08-17-2023 Telephone encount er Note Patient calls today - was seen earlier this month. He needs [facility] the [facility] indicating why he is on the Xarelto so sba underwriter will fax over the last OPN to [phone] (done at 0872). He will also need a new prescription [facility] to the [facility]. Will set that up and look to see when signed and this can also be faxed to the [facility] at the same number above. [facility] 08-17-2023 [facility]phone [facility] Does he have recent blood work? He would qualify for higher dose of Xarelto based on October lab work [facility] Work Phone: 08-17-2023 Telephone encount er Note Images from the original note were not included. E [facility] 08-01-2023 History of Presen t illness Narrative I agree with the findings in the scanned document. documented [facility] this encounter [facility] 06-01-2022 Note CONSULTATION CONSULTATION DATE: 06/01/2022 HISTORY [...] indicated. The patient is in agreement. [facility] 02-16-2022 Note CONSULTATION CONSULTATION DATE: 02/16/2022 [...] is in agreement of the plan. [facility] 11-24-2021 Note CONSULTATION CONSULTATION DATE: 11/24/2021 [...] to move forward with plan of care. [facility] Signed and Approved by: CYNTHIA LUNA . 11/30/2021 13:47:00 [facility] 10-11-2021 Note CONSULTATION PAIN MANAGEMENT CONSULTATION CHIEF COMPLAINT: Low back pain, bilateral posterior thigh pain. HISTORY OF PRESENT ILLNESS: This is a very pleasant, 66-year-old gentleman who was referred to us by Dr. Davion Pation. The patient has had chronic low back [...] in the office. CC: Davion Patino M.D. [facility] Signed and Approved by: DR ROMA BRAXTON . 10/25/2021 11:24:00 [facility] Evaluation note Diagnosis Automatic implantable cardioverter-defibrillator in situ - [place]- Primary documented in this encounter [facility] filedocumented in this [facility] filedocumented in this encounter [facility] Summary Purpose Family History No Family History [...] and content) DATE CREATED AUTHOR 08/28/2020 [facility] [employer] [facility] DATE CREATED AUTHOR AUTHOR'S ORGANIZ ATION 08/02/2021 [facility] dical Specialist DATE CREATED AUTHOR AUTHOR'S ORGANIZ ATION 06/20/2022 [facility] DATE CREATED AUTHOR AUTHOR'S ORGANIZ ATION 01/09/2024 [facility] d[facility] Specialists EPIC DATE CREATED AUTHOR AUTHOR'S ORGANIZ ATION 01/17/2024 [facility] DATE CREATED AUTHOR AUTHOR'S ORGANIZ ATION 01/20/2024 [facility] Reason for Visit (unrecogniz ed section and content) Reason Comments Device Check Reason Onset Date Comments xarelto 08/17/2023 Reason Onset Date Comments Med Refill 08/29/2023 Care Teams (unrecognized sec tion and content) Superintendent Sales Relationship Specialty Start Date End Date Davion Patino MD [address] [place] [id number] PCP - General 01/27/14 Superintendent Sales Relationship Specialty Start Date End Date Davion Patino MD [address] [place] [address] PCP - General 01/27/14 FOR RECORDS PERTAINING [...] BE BASED ON THE PRIMARY CLINICAL RECORDS. [facility]. provides no warranty or guarantee of the accuracy or completeness of information in this document.
--- NOTE | 2024-01-21 15:27 | P.CN_ITS ---
Consult Note: HPI Data of Consult Patient: known to practice within the last 3 years Consult date: 01/21/24 Requesting Physician: Jalen Griffin MD Primary Care Provider: VLAD BLACK Family Provider: VLAD BLACK Consult Narrative Reason for consult: right knee pain Narrative: 68yom who presents for in office injection. continues to have right knee pain, would like to proceed with right knee injection. cc:: CC: Jalen Griffin MD Review of Systems ROS Status of ROS 10 or more systems reviewed and unremark able except as noted in history and below PFSH PFSH Medical History (Updated 01/14/24 @ 15:20 by Matilde Donohue RN) Rheumatoid arthritis ?M06.9 - Rheumatoid arthritis, unspecified (ICD-10) Carpal tunnel syndrome ?G56.00 - Carpal tunnel syndrome, unspecified upper limb (ICD-10) Diabetes ?E11.9 - Type 2 diabetes mellitus without complications (ICD-10) Enlarged prostate ?N40.0 - Benign prostatic hyperplasia without lower urinary tract symptoms (ICD-10) Pacemaker ?Z95.0 - Presence of cardiac pacemaker (ICD-10) HTN (hypertension) ?I10 - Essential (primary) hypertension (ICD-10) CHF (congestive heart failure) ?I50.9 - Heart failure, unspecified (ICD-10) Chest pain ?R07.9 - Chest pain, unspecified (ICD-10) Heart attack ?I21.9 - Acute myocardial infarction, unspecified (ICD-10) Surgical History History of carpal tunnel release ?Z98.890 - Other specified postprocedural states (ICD-10) History of rotator cuff surgery ?Z98.890 - Other specified postprocedural states (ICD-10) History of heart bypass surgery ?Z95.1 - Presence of aortocoronary bypass graft (ICD-10) Meds Home Medications and Allergies Home Medications ?Medication ?Instructions ?Recorded ?Confirmed ?Type atorvastatin 80 mg tablet 80 mg PO DAILY 01/14/24 01/14/24 History carvedilol 25 mg tablet 25 mg PO BID 01/14/24 01/14/24 History celecoxib 200 mg capsule 200 mg PO DAILY 01/14/24 01/14/24 History cholecalciferol (vitamin D3) 25 25 mcg PO DAILY 01/14/24 01/14/24 History mcg (1,000 unit) tablet (Vitamin D3) cyanocobalamin (vitamin B-12) 500 500 mcg PO DAILY 01/14/24 01/14/24 History mcg tablet (Vitamin B-12) empagliflozin 25 mg tablet 25 mg PO DAILY 01/14/24 01/14/24 History furosemide 40 mg tablet 40 mg PO BID 01/14/24 01/14/24 History isosorbide mononitrate 60 mg 60 mg PO DAILY 01/14/24 01/14/24 History tablet,extended release 24 hr lisinopril 40 mg tablet 40 mg PO DAILY 01/14/24 01/14/24 History metformin 500 mg tablet 500 mg PO DAILY 01/14/24 01/14/24 History pantoprazole 40 mg tablet,delayed 40 mg PO DAILY 01/14/24 01/14/24 History release rivaroxaban 20 mg tablet (Xarelto) 20 mg PO DAILY 01/14/24 01/14/24 History sitagliptin 50 mg tablet 50 mg PO DAILY 01/14/24 01/14/24 History tamsulosin 0.4 mg capsule 0.4 mg PO DAILY 01/14/24 01/14/24 History Allergies Allergy/AdvReac Type Severity Reaction Status Date / Time Penicillins Allergy Rash Verified 01/14/24 15:08 Exam Narrative Exam Narrative: Psych-alert and oriented x 3.? Attentive and appropriate, constitutionally normal, displays normal mood and affect per situation.? There are no obvious deficits in memory, reasoning, or intellect. Extremities-lower extremities are warm with minimal edema and palpable pulses. Knee-examination of the right knee reveals tenderness to palpation over the superior, inferior, lateral, and medial aspect of the knee.? Some swelling is noted without erythema. Pain is elicited with flexion and extension of the knee both actively and passively.? Some grinding is noted with these motions.? There is no notable ligamental laxity or instability.? Coordination remains intact.? Gait remains antalgic. Assessment and Plan Assessment and Plan (1) Osteoarthritis of right knee: Qualifiers: Osteoarthritis type: primary Qualified Code(s): M17.11 - Unilateral primary osteoarthritis, right knee Plan 68yom who presents for in office injection. risks and benefits reviewed, we agree to proceed with right knee injection. Procedure: Right knee injection Medications: Synvisc-one (hyaluronic acid) I explained the details of the procedure to the patient including the risks, benefits and alternatives. We had an informed discussion and the patient verbalized understanding and signed the consent form. All questions were a nswered appropriately.? A time out was performed.? After obtaining a comfortable seated position, the right knee was prepped with alcohol x3. A syringe containing the above medication was attached to a 25 guage, 1.5 inch needle under strict aseptic technique. The lateral tibial plateau was palpated.? The needle was then advanced through the subcutaneous tissue in a medial and superior direction towards the joint space.? The contents of the syringe were gently injected without any resistance. The needle was removed and pressure was applied to the injection site to decrease the incidence of ecchymosis and hematoma formation.? A sterile bandage was applied.
== END 2024-01-21 13:36 | disposition home or self-care (01) ==
LOC: PM 13:35
PROVIDERS: Family Provider Internal Medicine; PCP Internal Medicine; Visit Provider Anesthesiology
DX: M17.11 Unilateral primary osteoarthritis, right knee (principal)
CPT/HCPCS: 20610; J7325

== ENCOUNTER 2025-05-19 08:31 | Outpatient (OUT) | payer MEDICARE, SELFPAY ==
--- NOTE | 2025-05-19 08:43 | XR_ITS ---
The [address] [address] Patient Name: ADELA AGUILAR MRN: [id number] date: 1955 Sex: M Assigned Patient Location: [facility] Current Patient Location: [facility] Accession/Order Number: [id number] Exam Date: 05/19/2025 08:45 Report Date: 05/19/2025 09:51 At the request of: VLAD BLACK Procedure: XR lumbar spine 2-3V LUMBAR SPINE - 3 views COMPARISON: 07/14/2021 CLINICAL DATA: Right back pain with radiation down the leg where there is numbness and tingling. AP, lateral lumbar and lumbosacral views were obtained. There is osteopenia. Slight dextroscoliotic curvature is seen. There are no acute compression fractures. There is minimal retrolisthesis of L1 on L2 and L2 on L3. There is multilevel disc space narrowing with relative sparing at L3-4. Endplate spurring is visualized throughout. There is lower lumbar facet hypertrophy. The SI joints are intact and show mild sclerosis. No paraspinal soft tissue abnormalities are visualized. XR/XR lumbar spine 2-3V IMPRESSION: OSTEOPENIA, SUBTLE SCOLIOSIS AND MULTILEVEL DEGENERATIVE CHANGES SIMILAR TO THE PRIOR. Impression dictated by: Shayna Huo M.D. 05/19/2025 9:51 AM Dictation Location: [place] [address] Electronically authenticated by: [id number] Y Date: 05/19/2025 09:51
== END 2025-05-19 08:32 | disposition home or self-care (01) ==
LOC: RAD 08:36
PROVIDERS: Family Provider Internal Medicine; PCP Internal Medicine; Visit Provider Internal Medicine
DX: M54.16 Radiculopathy, lumbar region (principal); M85.88 Other specified disorders of bone density and structure, other site; M51.369 Other intervertebral disc degeneration, lumbar region without mention of lumbar back pain or lower extremity pain
CPT/HCPCS: 72100